=== PATIENT | female | born 1965 | race Caucasian/White ===

== ENCOUNTER 2018-07-14 06:45 | Inpatient (IN) | payer OTHER ==
[~2018-07-14] VITALS: Ht 162.6 cm; Wt 80.7 kg
--- NOTE | ~2018-07-14 | PROC ---
[address] [address] PROCEDURE REPORT Name: NOVA REES Room: [address] IN ..#: [id number] Admission: 07/14/18 Attend Phys: Lydia Dunn Discharge: 07/15/18 Date of : 63 Report #: [id number] THIS REPORT FOR: //name// For GI report, please see the Provation report in Perceptive 7 content. By: 0651Medical Records Staff GRADY /NADIA
[~2018-07-14 06:45] MED LIST: FLAGYL500 MG PO; MACROBID 100 M100 M1 PO; NORCO 5-325 TA1 EAC1 PO
[2018-07-14 07:11] VITALS: BP 104/53
[2018-07-14 07:16] LABS: ABSOLUTE BASOPHILS 0.1 thou/uL (0.0-0.2); ABSOLUTE EOSINOPHILS 0.1 thou/uL (0.0-0.7); ABSOLUTE LYMPHOCYTES 1.7 thou/uL (0.8-5.3); ABSOLUTE MONOCYTES 0.5 thou/uL (0.0-1.2); ABSOLUTE NEUTROPHILS 5.5 thou/uL (1.6-8.1); BASOPHILS 0.8 %; HEMATOCRIT 42.9 % (37.0-47.0); HEMOGLOBIN 14.5 gm/dL (12.0-15.0); MCH 31.1 pg (26.0-34.0); MCHC 33.9 g/dL (28.0-37.0); MCV 91.8 fL (80.0-100.0); MONOCYTES 5.9 %; MPV 7.1 fl. (7.2-11.1); NUCLEATED RBCS 0 /100WBC; PLATELET COUNT* 285 thou/uL (150-400); POLYS 70.3 %; RBC 4.68 mil/uL (4.20-5.00); RDW-CV 13.8 % (10.5-14.5); WBC 7.8 thou/uL (4.0-11.0)
[2018-07-14 07:38] LABS: ALBUMIN 3.9 g/dL (3.4-5.0); ALKALINE PHOSPHATASE 63 U/L (46-116); ANION GAP 7 mmol/L (7-16); BUN 13 mg/dL (7-18); CALCIUM 9.1 mg/dL (8.5-10.1); CHLORIDE 106 mmol/L (98-107); CO2 26 mmol/L (21-32); CREATININE 0.7 mg/dL (0.6-1.3); GLUCOSE 97 mg/dL (70-99); LIPASE 155 U/L (73-393); POTASSIUM 4.2 mmol/L (3.5-5.1); SGOT 16 U/L (15-37); SGPT 18 U/L (30-65); SODIUM 139 mmol/L (136-145); TOTAL BILIRUBIN 0.4 mg/dL (<0.1-1.0); TOTAL PROTEIN 7.7 g/dL (6.4-8.2); TROPONIN-I LEVEL <0.06 ng/mL (<0.06)
[2018-07-14 08:00] LABS: URINE BILIRUBIN NEGATIVE (Negative); URINE BLOOD 1+ (Negative); URINE CLARITY CLEAR; URINE COLOR YELLOW; URINE GLUCOSE-RANDOM NEGATIVE (Negative); URINE KETONES NEGATIVE (Negative); URINE LEUKOCYTES-REFLEX NEGATIVE (Negative); URINE NITRITE-REFLEX NEGATIVE (Negative); URINE PROTEIN NEGATIVE (Negative); URINE SPECIFIC GRAVITY <= 1.005 (1.005-1.030); URINE UROBILINOGEN 0.2 E.U./dl (0.2-1.0)
[2018-07-14 08:05] LABS: BACTERIA-REFLEX None Seen /HPF (None Seen); CASTS None Seen /LPF (None Seen); CRYSTALS None Seen /LPF (None Seen); SQUAMOUS 0-3 Few /LPF (0-3); URINE RBC 0-2 Rare /HPF (0-2); URINE WBC-REFLEX None Seen /HPF (0-5)
--- NOTE | 2018-07-14 08:45 | NUR ---
COMPA NOTIFIED UPON PT RETURN AND THAT THE PATIENT IS TRAVELING TO THE RESTROOM THEREFORE, SHE WAS NOT CONNECTED TO THE MONITOR
--- NOTE | 2018-07-14 09:19 | EKG ---
[place] [address] ELECTROCARDIOGRAM REPORT Name: NOVA REES Room: [facility]#: [id number] Admission: 07/14/18 Attend Phys: Discharge: Date of : 63 Report #: [id number] THIS REPORT FOR: //name// [facility] ED Test Date: 2018-07-14 Test Time: 07:26:25 Pat Name: NOVA REES Department: Room: Gender: F Displayer: EZRA : 1965 Requested By: Ion Newton Order Number: [id number] MD: Aydin Mi Measurements Intervals [place] Rate: 69 P: 67 IA: 140 QRS: 67 QRSD: 100 T: 53 QT: 390 QTc: 418 Interpretive Statements Sinus rhythm No previous ECG available for comparison Electronically Signed On 07-14-2018 9:18:49 CDT by Aydin Mi [email or web address] <ELECTRONICALLY SIGNED> By: Aydin Mi MD, [facility] 07/14/18 0918 0726 0726 Aydin Mi MD, FACC /EPI
[2018-07-14 15:00] VITALS: BP 98/55
--- NOTE | 2018-07-14 15:51 | NUR ---
ASSESSMENT COMPLETE. PT ADMITTED WITH ABDOMINAL PAIN. PT REPORTS PAIN STARTS IN RLQ AND RADIATES TO LLQ, ALSO REPORTS EPIGASTRIC PAIN. GI CONSULTED. PT HAS HX OF OVARIAN CANCER 10 YEARS AGO. PT DENIES N/V. IV FLUIDS INFUSING. PRN PAIN MEDICATION GIVEN NEEDED. PT IS RESTING AT THIS TIME AND HAS NO OTHER CONCERNS. NPO. SEE ASSESSMENT AND VITALS FOR OTHER DETAILS. CALL LIGHT WITHIN REACH. WILL CONTINUE PLAN OF CARE
[2018-07-14 19:30] VITALS: BP 103/66
--- NOTE | 2018-07-15 03:55 | NUR ---
PATIENT IS ALERT AND ORIENTED TONIGHT PLEASANT. UP AD BINA IN ROOM IN. DOING BOWEL PREP. VITAL SIGNS STABLE ON ROOM AIR. PAIN THAT IS CONTROLLED WITH IV PAIN MEDICATIONS AND NAUSEA IS CONTOLLED WITH IV MEDS WELL. CALL LIGHT IS IN REACH, WILL PASS ON REPORT TO NURSE TAKING OVER CARE.
--- NOTE | 2018-07-15 04:35 | NUR ---
ASSUMED CARE OF PT FROM RANDI RN, I AGREE WITH PREVIOUS ASSESSMENT. PT AWAKE UP AMBULATING IN PERALTA. CONTINUING WITH BOWEL PREP. ZOFRAN GIVEN FOR NAUSEA, IV PAIN MED. RFA IVF INFUSING PER PUMP. WILL CONTINUE TO MONITOR AND PROVIDE CARES NEEDED. CALL LITE IN EASY REACH.
[2018-07-15 08:07] VITALS: BP 103/65; BP 118/43
[2018-07-15 08:18] VITALS: BP 118/43
--- NOTE | 2018-07-15 09:53 | NUR ---
AM ASSESSMENT AND VITAL SIGNS COMPLETED DOCUMENTED. PT HAS COMPLETED THE BOWEL PREP AND REPORTS HER STOOL IS NOW LIGHT YELLOW LIQUID. FENTANYL GIVEN X 1 FOR ABDOMINAL PAIN OF 8/10 WITH A DECREASE TO 5/10 AFTER 30 MINUTES. PT TRANSPORTED TO RADIOLOGY FOR A 3 VIEW OF HER ABDOMEN. PRE OP CHECKLIST COMPLETED. PT TAKEN TO PACU AT 0930.
--- NOTE | 2018-07-15 13:36 | NUR ---
PT RETURNED TO ROOM POST EGD/ COLONOSCOPY, FULLY AWAKE AND HAS BEEN INFORMED OF PLAN OF CARE. PT WILL START ON A CLEAR LIQUID DIET AND ADVANCE TOLERATED. FALL PRECAUTIONS AND HOURLY ROUNDING CONTINUE.
[2018-07-15 16:21] VITALS: BP 118/43
--- NOTE | 2018-07-15 17:40 | NUR ---
IV ACCESS DC'D ONCE PT WAS TOLERATING PO FOOD AND FLUID. DISCHARGE INSTRUCTIONS PROVIDED TO PT. PT AND BELONGINGS TRANSPORTED TO THE EXIT, DISCHARGED HOME IN STABLE CONDITION.
--- NOTE | 2018-07-17 11:09 | PATH ---
[address] [address] PATHOLOGY RPT PROCEDURE Name: RIDDHINOVA Goldman Room: [address] IN M.R.#: [id number] Admission: 07/14/18 Date of : 63 Discharge: 07/15/18 Report #: [id number] Path Case #: [id number] [facility] Accession Number: [id number] . 01 Material submitted: . PART A: GASTRIC BIOPSY FOR H-PYLORI PART B: ASCENDING COLON POLYPS PART C: RANDOM COLON BIOPSIES R/O MICROSCOPIC COLITIS . 01 Clinical history: . None provided . 02 Diagnosis: A. Gastric biopsy, "gastric biopsy": - Mild chronic reactive gastropathy. - The immunoperoxidase stains for Helicobacter pylori is negative. . B. Colonic mucosa, "ascending colon polyps": - Fragments of tubular adenomas. - There is no evidence of high grade dysplasia or malignancy. . C. Colonic mucosa, "random colon biopsies": - No diagnostic changes. - There is no evidence of acute cryptitis, granulomata, adenomatous changes or microscopic colitis or malignancy. . (SHA:den; 07/16/2018) QLM/07/16/2018 . 02 Electronically signed: . Nacho Reed MD, Pathologist NPI- [id number] . 01 Gross description: . A. Received in formalin labeled "[place], gastric biopsy for H. pylori," are 2 segments of lincoln soft tissue measuring 0.9 x 0.3 x 0.2 cm in aggregate dimensions and ranging from 0.4 to 0.5 cm in maximum dimension. The specimen is submitted entirely in cassette A1. . B. Received in formalin labeled "[place], ascending colon polyps," are 2 segments of lincoln soft tissue measuring 0.9 x 0.3 x 0.2 cm in aggregate dimensions and ranging from 0.4 to 0.5 cm in maximum dimension. The specimen is submitted entirely in cassette B1. . C. Received in formalin labeled "[place], random colon biopsies, rule out microscopic colitis," are multiple segments of lincoln soft tissue measuring 0.9 x 0.3 x 0.1 cm in aggregate dimensions. The specimen is filtered and entirely submitted [place] [address] PATHOLOGY RPT PROCEDURE Name: NOVA CORDOBA Room: [address] IN [facility].#: [id number] Admission: 07/14/18 Date of : 63 Discharge: 07/15/18 Report #: [id number] Path Case #: [id number] (TSD; 07/15/2018) TOB/TOB . 02 Pathologist provided ICD-10: K31.9, D12.2 . 02 CPT . 556380, 337040, 132782, C96386 Specimen Comment: A courtesy copy of this report has been sent to Specimen Comment: [phone], . Specimen Comment: Report sent to / DR HARRIS Specimen Comment: A duplicate report has been generated due to demographic updates. Performed at: [id number] [facility] [address], [place] [id number] MD Jose Elias Lynn MD Phone: [phone] Performed at: 02 [facility] [address], [place], [place] [id number] MD Frandy Lopez MD Phone: [phone]
--- NOTE | 2018-07-17 19:37 | CON ---
[address] [address] CONSULTATION Name: CABRERANOVA L Room: [address]#: [id number] Admission: 07/14/18 Attend Phys: Lydia Dunn Discharge: 07/15/18 Date of : 63 Report #: [id number] THIS REPORT FOR: //name// CC: AIDE physician/PCP Fantasma Montenegro DATE OF SERVICE: 07/15/2018 HISTORY OF PRESENT ILLNESS: This pleasant 52-year-old female with a past medical history significant for stage 3B ovarian cancer diagnosed 11 years back for which she received intraperitoneal chemotherapy who is presenting for evaluation of abdominal pain. The patient reports that she has had this pain for several months, but this has become progressively worse in the last few weeks. The patient reports the pain is located in the epigastrium and radiates to the right side. The patient reports pain is associated with change in bowel habits and it alternates between constipation and diarrhea. The patient does report the pain gets better when the patient passes bowel movement most of the time. She also reports associated bloating, but denies any nausea, vomiting, hematemesis, hematochezia or weight loss. The patient's last EGD and colonoscopy were performed about 8 years back. PAST MEDICAL HISTORY: As mentioned above. The patient has a history of stage 3B ovarian cancer. PAST SURGICAL HISTORY: Hysterectomy and cholecystectomy. SOCIAL HISTORY: The patient smokes about half a pack of cigarettes per day and takes alcohol about once a week. She denies any recreational drug use. FAMILY HISTORY: There is no family history of colorectal cancer. PHYSICAL EXAMINATION: VITAL SIGNS: Temperature 37.3, pulse rate 83, respirations 16 and blood pressure 118/43. GENERAL: The patient is alert, awake and oriented x 3. HEENT: Pupils are equal, round and reactive to light and accommodation. Mucous membranes are moist. There is no congestion. LUNGS: Clear to auscultation bilaterally. CARDIOVASCULAR: Rate and rhythm regular, S1, S2 present. ABDOMEN: Soft. There is no distention, guarding or rigidity. EXTREMITIES: Warm and well perfused. There is no edema. SKIN: Warm and dry. LABORATORY DATA: Hemoglobin 14.5, hematocrit 42.9 and platelet count 285, WBC count 7.8. Sodium 139, potassium 4.2, chloride 106, bicarbonate 26, BUN 13, creatinine 0.7, glucose 97, total bilirubin 0.4, AST 16, ALT 18, [place] [address] CONSULTATION Name: NOVA REES Room: [address]#: [id number] Admission: 07/14/18 Attend Phys: Lydia Dunn Discharge: 07/15/18 Date of : 63 Report #: [id number] phosphatase 63. Lipase 155. IMAGING: Abdomen and pelvis CT, this demonstrates surgical changes of cholecystectomy with normal post-cholecystectomy bile duct enlargement. No evidence of hydronephrosis or obstruction. No renal masses, unchanged focal fat hernia, no bowel loop entrapment. Acute abdomen series, no acute abdominal abnormality identified. ASSESSMENT AND PLAN: A pleasant 52-year-old female with a past medical history of stage 3B ovarian cancer, status post intraperitoneal chemotherapy about 11 years back, was presenting for evaluation of progressively worsening abdominal pain associated with change in bowel habits. The pain appears to be relieved with passing of bowel movement. The patient's last EGD and colonoscopy were 8 years back. The patient does not have any alarm symptoms at this time; however, we will proceed with EGD and colonoscopy to evaluate the presence of any mucosal disease such as inflammatory bowel disease. Further recommendations can be based on the results of the endoscopic evaluation. Thank you for this consult. <ELECTRONICALLY SIGNED> By: Jared Ryan MD 07/17/18 [id number] Ryan MD /nt
== END 2018-07-15 17:44 | disposition home or self-care (01) | DRG 392 ==
LOC: M.ERS 06:45 → M.3W 09:39 → M.TBA-ER 09:39 → M.3W 13:59
PROVIDERS: Emergency Medicine Emergency Medical Services; ADMIT Internal Medicine
PROC: 0DBK8ZZ Excision of Ascending Colon, Via Natural or Artificial Opening Endoscopic (ICD-10-PCS; principal; 2018-07-15)
PROC: 0DBE8ZX Excision of Large Intestine, Via Natural or Artificial Opening Endoscopic, Diagnostic (ICD-10-PCS; principal; 2018-07-15)
PROC: 0DB68ZX Excision of Stomach, Via Natural or Artificial Opening Endoscopic, Diagnostic (ICD-10-PCS; principal; 2018-07-15)
DX: R10.9 Unspecified abdominal pain (principal); F41.9 Anxiety disorder, unspecified; D12.2 Benign neoplasm of ascending colon; F17.210 Nicotine dependence, cigarettes, uncomplicated; Z85.43 Personal history of malignant neoplasm of ovary; Z90.710 Acquired absence of both cervix and uterus; Z90.49 Acquired absence of other specified parts of digestive tract; Z92.21 Personal history of antineoplastic chemotherapy; Z79.899 Other long term (current) drug therapy; Z88.1 Allergy status to other antibiotic agents; Z88.5 Allergy status to narcotic agent